=== PATIENT | female | born 1955 | race Two or more races ===

== ENCOUNTER 2018-09-15 05:06 | Inpatient (IN) | payer OTHER ==
[2018-09-15] VITALS (11 sets, daily range): BP systolic 100–122; BP diastolic 57–72
[~2018-09-15] VITALS: Ht 162.6 cm; Wt 87.1 kg
--- NOTE | 2018-09-15 05:30 | NUR ---
MS/RN NOTES PT RECEIVED. DAY SURGERY. A/OX3. ORIENTED PT TO ROOM AND CALL LIGHT. ON ROOM AIR, BREATHING EVEN AND UNLABORED. IV INSERTED TO RFA #22. CONSENTS FOR RIGHT KNEE TOTAL ARTHROPLASTY SIGNED. BELONGINGS LIST COMPLETED. BED IN LOW/LOCKED POSITION WITH CALL LIGHT IN REACH. BILATERAL UPPER SIDE RAILS IN PLACE. WILL CONTINUE TO MONITOR
[2018-09-15] MEDS ORDERED: MORPHINE SULFATE/PF 10 MG/10ML (1MG/ML) AMPUL ONE (06:27)
[2018-09-15] MEDS ORDERED: FENTANYL PF 100MCG/2ML AMPUL ONE (06:28)
[2018-09-15] MEDS ORDERED: MIDAZOLAM HCL 2 MG/2ML VIAL ONE (06:28)
[2018-09-15] MEDS ORDERED: SCOPOLAMINE HBR 1 EA PATCH.TD72 TD ONE (06:28)
--- NOTE | 2018-09-15 06:30 | NUR ---
MS/RN NOTES PT SENT DOWN TO SURGERY
[2018-09-15] MEDS ORDERED: CALC-10 PO (06:36)
[2018-09-15] MEDS ORDERED: MONT10TA22 PO (06:36)
[2018-09-15] MEDS ORDERED: ASPI-1152 PO (06:36)
[2018-09-15] MEDS ORDERED: LORA10TA7 PO (06:36)
[2018-09-15] MEDS ORDERED: AMLO2.5T3 PO (06:36)
[2018-09-15] MEDS ORDERED: LOSA100T31 PO (06:36)
[2018-09-15] MEDS ORDERED: GABA-532 PO (06:36)
[2018-09-15] MEDS ORDERED: LEVO75TA7 PO (06:36)
[2018-09-15] MEDS ORDERED: BECL10.62 IH (06:36)
[2018-09-15] MEDS ORDERED: FERR325T23 PO (06:36)
[2018-09-15] MEDS ORDERED: HYDR12.55 PO (06:36)
[2018-09-15] MEDS ORDERED: METF-440 PO (06:36)
[2018-09-15] MEDS ORDERED: ANESTHESIA TRAY IN PYXIS 1 EA TRAY MC ONE (06:40)
[2018-09-15] MEDS ORDERED: BACITRACIN 50000 UNITS/VIAL ONE (06:41)
[2018-09-15] MEDS ORDERED: BUPIVACAINE MPF 0.5% W/EPI INJ 30 ML VIAL ONE (06:41)
[2018-09-15] MEDS ORDERED: LIDOCAINE HCL/PF 1% 30 ML SDV ONE (06:41)
[2018-09-15] MEDS ORDERED: BUPIVACAINE 0.75% DEXT-PF 2 ML AMPUL ONE (06:49)
[2018-09-15] MEDS ORDERED: TRANEXAMIC ACID 3,000 MG in SODIUM CHLORIDE IRRIG SOLUTION 70 ML IR ONE (07:30)
--- NOTE | 2018-09-15 07:51 | NUR ---
MS RN NOTES RECEIVED ENDORSEMENT FROM PREVIOUS SHIFT THAT PATIENT TAKEN BY OR STAFF FOR SURGERY.
[2018-09-15] MEDS ORDERED: BUPIVACAINE MPF W/EPI 0.25% 30 ML VIAL ONE (08:37)
[2018-09-15] MEDS: AMLODIPINE BESYLATE 2.5 MG TABLET PO SCH (09:00)
[2018-09-15] MEDS: HYDROCHLOROTHIAZIDE 25 MG TABLET PO SCH (09:00)
[2018-09-15] MEDS: LOSARTAN POTASSIUM 50 MG TABLET PO SCH (09:00)
[2018-09-15] MEDS ORDERED: LORATADINE 10 MG TABLET PO PRN (09:00)
[2018-09-15] MEDS ORDERED: IV D5/0.45 NACL 1,000 ML IV PRN (09:30)
[2018-09-15] MEDS ORDERED: HYDROCODONE/APAP 5/325MG 1 EACH TABLET PO PRN ×2 (09:30→10:30)
[2018-09-15] MEDS ORDERED: COLACE 250 MG CAPSULE PO PRN (09:30)
[2018-09-15] MEDS: BUDESONIDE RESPULE INH 0.25 MG/2 ML AMPUL.NEB NEB SCH ×2 (09:30→19:30)
[2018-09-15] MEDS ORDERED: DULCOLAX 10 MG/SUPP.RECT RC PRN (09:30)
[2018-09-15] MEDS ORDERED: ZOFRAN 4mg/2ML IV PRN (09:30)
[2018-09-15] MEDS ORDERED: AMBIEN 5 MG TABLET PO PRN (09:30)
[2018-09-15] MEDS ORDERED: TYLENOL 650 MG TABLET PO PRN (09:30)
[2018-09-15] MEDS ORDERED: SENOKOT 8.6 MG TABLET PO PRN (09:30)
[2018-09-15] MEDS ORDERED: diphenhydrAMINE HCL 25 MG CAPSULE PO PRN (10:00)
[2018-09-15] MEDS ORDERED: NALOXONE HCL 0.4 MG/ML AMPUL IV PRN ×2 (10:00)
[2018-09-15] MEDS ORDERED: HYDROMORPHONE INJ 2 MG/ML DISP.SYRIN IV PRN (10:00)
[2018-09-15] MEDS ORDERED: MAGNESIUM HYDROXIDE 30 ML UDC PO PRN (10:30)
[2018-09-15] MEDS ORDERED: MAG HYDROX/AL HYDROX/SIMETH 30 ML UDC PO PRN (10:30)
[2018-09-15] MEDS ORDERED: ACETAMINOPHEN 325 MG TABLET PO PRN (10:30)
[2018-09-15] MEDS ORDERED: Z GUARD REMEDY 2 OZ OINT TP PRN (10:30)
[2018-09-15] MEDS ORDERED: MORPHINE SULFATE INJ 2 MG/ML DISP.SYRIN IV PRN (10:30)
[2018-09-15] MEDS ORDERED: HYDROCODONE/APAP 10/325MG 1 EA TABLET PO PRN (10:30)
--- NOTE | 2018-09-15 11:00 | NUR ---
MERCURY WASHER NOTES PATIENT RETURNED TO UNIT AT 1015 VIA RNEY, REPORT RECEIVED FROM ZEB LOERA. PATIENT AWAKE, ALERT AND ORIENTED X 4, VERBALLY RESPONSIVE AND RESPONDS TO VERBAL AND TACTILE STIMULI. BREATHING EVEN AND UNLABORED. ON ROOM AIR. NO SOB OR ACUTE DISTRESS. PATIENT S/P RIGHT TOTAL KNEE ARTHROPLASTY WITH DR. MURPHY. PATIENT HAD SPINAL ANESTHESIA DURING SURGERY. WITH ORDER FOR PATIENT TO BE PLACED ON TELEMETRY X 24 FOR MONITORING. EL TEACHER PLACED, SR AT [address] WITH YELLOW URINE OUTPUT NOTED. WILL CONTINUE TO MONITOR. BED LOCKED AND IN LOW POSITION. BILATERAL UPPER SIDE RAILS UP AND LOCKED. CALL LIGHT WITHIN EASY REACH.
[2018-09-15] MEDS: MONTELUKAST SODIUM (10MG) 10 MG TABLET PO SCH (11:36)
[2018-09-15] MEDS: FERROUS SULFATE (325 MG) 325 MG/TAB TABLET PO SCH (11:36)
[2018-09-15] MEDS: LEVOTHYROXINE SODIUM 75 MCG TABLET PO SCH (11:36)
[2018-09-15] MEDS: METFORMIN 500 MG TABLET PO SCH ×2 (11:36→17:55)
[2018-09-15 11:59] LABS: ALBUMIN 3.3 g/dL (3.4-5.0); BILIRUBIN,TOTAL 0.3 mg/dL (0.2-1.0); CALCIUM, SERUM 9.2 mg/dL (8.5-10.1); CREATININE 0.9 mg/dL (0.6-1.3); MAGNESIUM 1.8 mg/dL (1.8-2.4); PHOSPHORUS 3.9 mg/dL (2.5-4.9); POTASSIUM 3.4 mmol/L (3.5-5.1); TOTAL PROTEIN, SERUM 6.9 g/dL (6.4-8.2)
[2018-09-15 12:23] LABS: BASOPHILS % (AUTO) 0.3 % (0.0-2.0); EOSINOPHILS % (AUTO) 0.5 % (0.0-6.0); HEMATOCRIT 40 % (33-45); LYMPHOCYTES % (AUTO) 11.7 % (20.0-44.0); MEAN CORPUSCULAR HGB CONC 33 g/dl (31.0-36.0); MEAN CORPUSCULAR VOLUME 93 fL (82-100); MONOCYTES # (AUTO) 0.3 /CMM (0.1-1.30); MONOCYTES % (AUTO) 3.2 % (2.0-12.0); NEUTROPHILS # (AUTO) 7.1 /CMM (1.8-8.9); NEUTROPHILS % (AUTO) 84.3 % (43.0-81.0); PLATELET COUNT (AUTO) 202 /CMM (150-450); RED BLOOD CELL COUNT(AUTO) 4.26 MIL/uL (4.0-5.2); WHITE BLOOD COUNT (AUTO) 8.4 K/uL (4.3-11.0)
[2018-09-15] MEDS ORDERED: INSULIN REGULAR, HUMAN 100 UNIT/ML 3 ML VIAL SQ PRN (12:30)
[2018-09-15] MEDS ORDERED: DEXTROSE 50%-WATER 50 ML DISP.SYRIN IV PRN (12:30)
[2018-09-15] MEDS: IV NS 0.9% 1,000 ML IV PRN (14:34)
[2018-09-15] MEDS: ANCEF 1 G in IV D5W 50 ML IV SCH ×2 (14:51→23:14)
[2018-09-15 16:02] LABS: APPEARANCE,URINE CLEAR (CLEAR); BILIRUBIN,URINE NEGATIVE (NEGATIVE); BLOOD, URINE SMALL Ery/uL (NEGATIVE); COLOR,URINE YELLOW (YELLOW); KETONES,URINE NEGATIVE (NEGATIVE); LEUKOCYTE ESTERASE ,URINE NEGATIVE (NEGATIVE); NITRITE, URINE NEGATIVE (NEGATIVE); PH,URINE 5.5 (5.0-8.0); PROTEIN,URINE NEGATIVE (NEGATIVE); UGLUCOSE NEGATIVE (NEGATIVE); UROBILINOGEN,URINE 0.2 EU/dL (0.2)
[2018-09-15] MEDS ORDERED: POTASSIUM CHLORIDE 10 MEQ TABLET.SA PO ONE (17:00)
[2018-09-15] MEDS: ASPIRIN 325 MG TABLET PO SCH (17:55)
[2018-09-15] MEDS: GABAPENTIN 100 MG CAPSULE PO SCH (17:55)
[2018-09-15] MEDS: BLOOD SUGAR DIAGNOSTIC 1 EACH STRIP IN SCH ×2 (17:56→23:14)
--- NOTE | 2018-09-15 18:47 | NUR ---
SQL ARCHITECT NOTES PATIENT RESTING INSIDE ROOM. AWAKE, ALERT AND ORIENTED X 4, VERBALLY RESPONSIVE AND RESPONDS TO VERBAL AND TACTILE STIMULI. BREATHING EVEN AND UNLABORED. NO SOB OR ACUTE DISTRESS NOTED AT THIS TIME. ALL NURSING NEEDS ATTENDED AND MET. PATIENT HAD CPM ON FOR 4 HOURS. INCENTIVE SPIROMETER AT BEDSIDE. BAKER CATHETER IN PLACE WITH YELLOW URINE OUTPUT NOTED. CONTINUE WITH TELEMETRY, CUT OUT MACHINE OPERATOR IN PLACE. NSR AT 70BPM. WILL ENDORSE TO INCOMING SHIFT FOR HERNANDEZ. BED LOCKED AND IN LOW POSITION. BILATERAL UPPER SIDE RAILS UP AND LOCKED. CALL LIGHT WITHIN EASY REACH
--- NOTE | 2018-09-15 19:45 | NUR ---
TELERN FULLY AWAKE, RIGHT KNEE DRESSING DRY AND INTACT. VERBALIZES STARTING TO HAVE CRAMPS ON AFFECTED LEG. ICEPACK APPLIED OVER AREA. PILLOW UNDER LEG. V/S STABLE, PLAN OF CARE AND MEDICATION REGIMEN REVIEWED WITH PATIENT, WELL UNDERSTOOD. TO CONTINUE.
--- NOTE | 2018-09-15 23:00 | NUR ---
TELERN REMAINS SR ON THE MONITOR. BS WAS 67. SNACKS PROVIDED. ATE WELL. RIGHT LEG WITH IMMOBILIZER IN PLACE. ALL NEEDS MADE.
[2018-09-15] MEDS ORDERED: CYCLOBENZAPRINE 10 MG TABLET PO PRN (23:30)
[2018-09-16 00:15] VITALS: BP 115/71
--- NOTE | 2018-09-16 00:28 | NUR ---
RT NOTE UNAWARE OF SCHEDULED TREATMENT. WILL CARRY OUT ORDERED TREATMENT SCHEDULED.
[2018-09-16] MEDS: IV NS 0.9% 1,000 ML IV PRN ×2 (03:37→05:43)
--- NOTE | 2018-09-16 03:54 | NUR ---
TELERN SLEEPING APPEARS COMFORTABLE. CLOSELY WATCHED
[2018-09-16 04:32] VITALS: BP 123/72
[2018-09-16] MEDS: ONDANSETRON HCL/PF 4 MG/2 ML VIAL IVP PRN ×2 (05:39→12:51)
[2018-09-16] MEDS: BLOOD SUGAR DIAGNOSTIC 1 EACH STRIP IN SCH ×4 (05:44→22:13)
--- NOTE | 2018-09-16 06:25 | NUR ---
DES BS 79. IVF CONTINUED. ICEPACK MAINTAINED ON RIGHT OPERATIVE SITE.
[2018-09-16] MEDS: BUDESONIDE RESPULE INH 0.25 MG/2 ML AMPUL.NEB NEB SCH ×2 (07:59→19:48)
[2018-09-16 08:00] VITALS: BP 112/68
[2018-09-16] MEDS: HYDROMORPHONE 1 MG/1 ML DISP.SYRIN SQ PRN ×2 (08:35)
[2018-09-16] MEDS: PANTOPRAZOLE 40 MG TABLET.DR PO SCH (08:35)
[2018-09-16] MEDS: AMLODIPINE BESYLATE 2.5 MG TABLET PO SCH (09:00)
[2018-09-16] MEDS: METFORMIN 500 MG TABLET PO SCH ×2 (09:00→17:00)
[2018-09-16] MEDS: HYDROCHLOROTHIAZIDE 25 MG TABLET PO SCH (09:00)
[2018-09-16] MEDS: LOSARTAN POTASSIUM 50 MG TABLET PO SCH (09:00)
[2018-09-16] MEDS: ASPIRIN 325 MG TABLET PO SCH ×2 (09:22→18:01)
[2018-09-16] MEDS: FERROUS SULFATE (325 MG) 325 MG/TAB TABLET PO SCH (09:22)
[2018-09-16] MEDS: LEVOTHYROXINE SODIUM 75 MCG TABLET PO SCH (09:22)
[2018-09-16] MEDS: MONTELUKAST SODIUM (10MG) 10 MG TABLET PO SCH (09:22)
[2018-09-16] MEDS: HYDROCODONE/APAP 10/325MG 1 EA TABLET PO PRN (09:51)
[2018-09-16] MEDS ORDERED: MORPHINE SULFATE INJ 2 MG/ML DISP.SYRIN IV PRN (11:00)
[2018-09-16] MEDS ORDERED: HYDROCODONE/APAP 5/325MG 1 EACH TABLET PO PRN (11:00)
[2018-09-16] MEDS: POLYETHYLENE GLYCOL 3350 17 GM POWD.PACK PO SCH ×2 (11:00→12:37)
[2018-09-16] MEDS: SENNOSIDES/DOCUSATE SODIUM 1 TAB TABLET PO SCH ×3 (11:00→17:00)
[2018-09-16] MEDS ORDERED: TRAMADOL HCL 50 MG TABLET PO SCH (11:00)
--- NOTE | 2018-09-16 13:46 | NUR ---
insulin held as well as glucophage due to pt. not eating.
[2018-09-16 16:00] VITALS: BP_SYST 128; BP_SYST 153; BP_DIAS 72; BP_DIAS 73
--- NOTE | 2018-09-16 17:00 | NUR ---
MED. X 1 WITH COTY.
--- NOTE | 2018-09-16 18:00 | NUR ---
PT. MEDICATED X1 WITH DILAUDID,NORCO AND ULTRAM.STATES NORCO MOST EFFECTIVE.
[2018-09-16] MEDS: GABAPENTIN 100 MG CAPSULE PO SCH (18:03)
--- NOTE | 2018-09-16 19:30 | NUR ---
MSRN FULLY AWAKE, ASSISTED BY FILM AND VIDEO GRAPHICS DESIGNER TO RESTROOM. URGE TO HAVE BM. TO CONTINUE.
[2018-09-16 20:00] VITALS: BP 147/80
--- NOTE | 2018-09-16 20:34 | NUR ---
MSRRoshni MCKAY TO SEE PATIENT.
--- NOTE | 2018-09-16 20:36 | NUR ---
INOCENCIO STATED TO BM. BAKER TO GRAVITY OUTPUT MONITORED.
[2018-09-16] MEDS ORDERED: HYDROMORPHONE 1 MG/1 ML DISP.SYRIN SQ PRN (21:00)
[2018-09-16] MEDS: TRAMADOL HCL 50 MG TABLET PO PRN (22:12)
--- NOTE | 2018-09-16 22:38 | NUR ---
INOCENCIO BS 122, REFUSED SNAKCS.
[2018-09-16 23:45] LABS: BASOPHILS % (AUTO) 0.1 % (0.0-2.0); HEMATOCRIT 33 % (33-45); HEMOGLOBIN 11.2 g/dL (11.5-14.8); LYMPHOCYTES # (AUTO) 1.8 /CMM (0.8-4.8); LYMPHOCYTES % (AUTO) 16.7 % (20.0-44.0); MEAN CORPUSCULAR HGB CONC 34 g/dl (31.0-36.0); MEAN CORPUSCULAR VOLUME 90 fL (82-100); MONOCYTES # (AUTO) 1.1 /CMM (0.1-1.30); MONOCYTES % (AUTO) 9.9 % (2.0-12.0); NEUTROPHILS # (AUTO) 8.1 /CMM (1.8-8.9); NEUTROPHILS % (AUTO) 73.3 % (43.0-81.0); PLATELET COUNT (AUTO) 222 /CMM (150-450); RED BLOOD CELL COUNT(AUTO) 3.61 MIL/uL (4.0-5.2)
[2018-09-16 23:58] LABS: CALCIUM, SERUM 8.3 mg/dL (8.5-10.1); CREATININE 0.8 mg/dL (0.6-1.3); MAGNESIUM 1.3 mg/dL (1.8-2.4); PHOSPHORUS 3.2 mg/dL (2.5-4.9); POTASSIUM 3.1 mmol/L (3.5-5.1)
--- NOTE | 2018-09-17 | NUR ---
MSRN SLEEPING EASILY AWAKENED, NO NEEDS MADE, CLOSELY WATCHED.
[2018-09-17 00:08] LABS: THYROID STIMULATING HORMONE 0.228 uIU/mL (0.358-3.74)
[2018-09-17] MEDS ORDERED: Magnesium 1GM/D5W 100ML PREMIX PIGGYBACK IV ONE (05:30)
[2018-09-17] MEDS ORDERED: POTASSIUM CHLORIDE 20 MEQ TAB.PRT.SR PO ONE (05:30)
--- NOTE | 2018-09-17 05:30 | NUR ---
MSRN ABN LABS RELAYED TO VISHNU BURDICK, ORDERS RECEIVED.
[2018-09-17] MEDS: BLOOD SUGAR DIAGNOSTIC 1 EACH STRIP IN SCH ×4 (06:47→22:26)
--- NOTE | 2018-09-17 07:00 | NUR ---
KDUR TOTAL OF 40 MEQ PO GIVEN. 2ND BAG OF MAGNESIUM INFUSING. BS WAS 126.
[2018-09-17] MEDS: BUDESONIDE RESPULE INH 0.25 MG/2 ML AMPUL.NEB NEB SCH ×2 (07:41→19:57)
[2018-09-17] MEDS: LEVOTHYROXINE SODIUM 75 MCG TABLET PO SCH (07:43)
[2018-09-17] MEDS: PANTOPRAZOLE 40 MG TABLET.DR PO SCH (07:43)
[2018-09-17 08:00] VITALS: BP 129/74
[2018-09-17] MEDS: LOSARTAN POTASSIUM 50 MG TABLET PO SCH (08:47)
[2018-09-17] MEDS: MONTELUKAST SODIUM (10MG) 10 MG TABLET PO SCH (08:47)
[2018-09-17] MEDS: ASPIRIN 325 MG TABLET PO SCH ×2 (08:48→17:59)
[2018-09-17] MEDS: FERROUS SULFATE (325 MG) 325 MG/TAB TABLET PO SCH (08:48)
[2018-09-17] MEDS: METFORMIN 500 MG TABLET PO SCH ×2 (08:48→18:00)
[2018-09-17] MEDS: SENNOSIDES/DOCUSATE SODIUM 1 TAB TABLET PO SCH ×2 (08:48→18:00)
[2018-09-17] MEDS: AMLODIPINE BESYLATE 2.5 MG TABLET PO SCH (08:49)
[2018-09-17] MEDS: POLYETHYLENE GLYCOL 3350 17 GM POWD.PACK PO SCH (08:49)
[2018-09-17] MEDS: HYDROCODONE/APAP 10/325MG 1 EA TABLET PO PRN ×2 (09:23→14:11)
--- NOTE | 2018-09-17 10:00 | NUR ---
BAKER CATH REMOVED,THEN PHYSICAL TX HERE TO GET PT. OOB.
[2018-09-17] MEDS: TRAMADOL HCL 50 MG TABLET PO PRN (12:24)
--- NOTE | 2018-09-17 13:11 | NUR ---
MEDICATED X 2 FOR PAIN WITH ULTRAM AND NORCO.
[2018-09-17] MEDS ORDERED: BISA10SU8 RC (14:21)
[2018-09-17] MEDS ORDERED: HYDR-4384 PO (14:21)
[2018-09-17 16:00] VITALS: BP 135/81
--- NOTE | 2018-09-17 16:00 | NUR ---
PT INFORMED ORTHO PRIMARY OPERATOR THAT SHE HAS PAIN RT. CALF.DUPLEX VENOUS RT. LOWER EXT. ORDERED.
--- NOTE | 2018-09-17 16:15 | NUR ---
PT. JUST UP TO COMMODE AND VOIDED.
--- NOTE | 2018-09-17 16:37 | NUR ---
DC ORDER PER DR. MERINO,CASE MGNT. CONTACTED AWAITING PLACEMENT AT [facility].
[2018-09-17] MEDS: GABAPENTIN 100 MG CAPSULE PO SCH (18:00)
[2018-09-17] MEDS: HYDROCHLOROTHIAZIDE 25 MG TABLET PO SCH (18:01)
--- NOTE | 2018-09-17 18:30 | NUR ---
DC PAPER WORK BEGUN.
--- NOTE | 2018-09-17 19:30 | NUR ---
RN NOTES RECEIVED PT. AWAKE ON BED, A/OX4, AMBULATE WITH WALKER, DRESSING ON THE RIGHT KNEE DRY AND INTACT, CALL LIGHT WITHIN REACH, [id number], CONTINUE TO MONITOR
[2018-09-17 20:00] VITALS: BP 142/77
--- NOTE | 2018-09-17 20:50 | NUR ---
rn notes complained of right knee pain- pt asked for dilaudid, dilaudid 1mg SQ given as ordered, v/s stable
--- NOTE | 2018-09-18 06:45 | NUR ---
RN NOTES AWAKE, DENIES PAIN, NO SOB, MORNING CARE RENDERED, CALL LIGHT WITHIN REACH, [id number],PT. NEEDS ATTENDED
[2018-09-18] MEDS: BUDESONIDE RESPULE INH 0.25 MG/2 ML AMPUL.NEB NEB SCH ×2 (07:14→20:07)
--- NOTE | 2018-09-18 07:47 | NUR ---
MS RN NOTE RECEIVED PT IN STABLE CONDITION. NO SIGNS OF SOB OR DISTRESS. PT ALERT ORIENTED X4. PT AWARE OF CURRENT PLAN OF CARE AND AWAITING A BED AT [facility] FOR PT. SHE CURRENTLY IS USING A BEDSIDE COMMODE WITH IV FLUIDS RUNNING APPROPRIATELY. NO SIGNS OF INFILTRATION. WILL CONT. TO MONITOR PAIN AND MANAGE ORDERED. BED IN THE LOWEST POSITION, UPPER BED RAILS UP, AND CALL LIGHT WITHIN REACH.
[2018-09-18 08:00] VITALS: BP 124/72
[2018-09-18] MEDS: PANTOPRAZOLE 40 MG TABLET.DR PO SCH (08:12)
[2018-09-18] MEDS: POLYETHYLENE GLYCOL 3350 17 GM POWD.PACK PO SCH (08:44)
[2018-09-18] MEDS: FERROUS SULFATE (325 MG) 325 MG/TAB TABLET PO SCH (08:45)
[2018-09-18] MEDS: MONTELUKAST SODIUM (10MG) 10 MG TABLET PO SCH (08:45)
[2018-09-18] MEDS: ASPIRIN 325 MG TABLET PO SCH ×2 (08:45→17:14)
[2018-09-18] MEDS: SENNOSIDES/DOCUSATE SODIUM 1 TAB TABLET PO SCH ×2 (08:45→17:14)
[2018-09-18] MEDS: METFORMIN 500 MG TABLET PO SCH ×2 (08:45→17:15)
[2018-09-18] MEDS: LEVOTHYROXINE SODIUM 75 MCG TABLET PO SCH (08:46)
[2018-09-18] MEDS: LOSARTAN POTASSIUM 50 MG TABLET PO SCH (08:46)
[2018-09-18] MEDS: AMLODIPINE BESYLATE 2.5 MG TABLET PO SCH (08:46)
[2018-09-18] MEDS: HYDROCHLOROTHIAZIDE 25 MG TABLET PO SCH (08:47)
[2018-09-18] MEDS: BLOOD SUGAR DIAGNOSTIC 1 EACH STRIP IN SCH ×4 (08:58→21:03)
[2018-09-18 16:00] VITALS: BP 147/67
[2018-09-18] MEDS: GABAPENTIN 100 MG CAPSULE PO SCH (17:15)
[2018-09-18] MEDS: HYDROCODONE/APAP 10/325MG 1 EA TABLET PO PRN ×2 (17:15→21:57)
--- NOTE | 2018-09-18 19:13 | NUR ---
MS RN NOTE PT IN STABLE CONDITION, ALERT/ORIENTED. VS STABLE NO SIGNS OF SOB OR DISTRESS. NO PAIN NOTED. AWAITING PLACEMENT AT SNF. PT VERBALIZES UNDERSTANDING OF CURRENT PLAN OF CARE. PT. STILL USING BEDSIDE COMMODE WITHOUT DIFFICULTY. BED REMAINS IN LOW POSITION, UPPER BED RAILS UP, AND CALL LIGHT WITHIN REACH. WILL ENDORSE TO NEXT SHIFT.
--- NOTE | 2018-09-18 19:30 | NUR ---
RECEIVED PATIENT IN BED WITH AWAKE. AO X 3, ABLE TO MAKE NEEDS KNOWN. NO ACUTE DISTRESS NOTED. NO SIGNS OF PAIN NOTED. NO SYMPTOMS OF HYPER/HYPOGLYCEMIA. IV SITE PATENT, INTACT; FLUSHED. SAFETY REMINDERS GIVEN. ON LOW BED WITH BILATERAL UPPER SIDE RAILS UP. CALL MILLER WITHIN EASY REACH. WILL CONTINUE TO MONITOR.
[2018-09-18 20:00] VITALS: BP 113/63
--- NOTE | 2018-09-19 06:15 | NUR ---
PATIENT ASLEEP, EASILY AROUSABLE. RESPIRATIONS EVEN. NO SIGNS OF PAIN NOTED. RIGHT KNEE DRESSING INTACT. NEEDS ATTENDED. SAFETY PRECAUTIONS AND COMFORT MEASURES IN PLACE. WILL GIVE REPORT TO DAY SHIFT FOR CONTINUITY OF CARE.
[2018-09-19] MEDS: BLOOD SUGAR DIAGNOSTIC 1 EACH STRIP IN SCH (06:40)
--- NOTE | 2018-09-19 07:45 | NUR ---
RN OPENING NOTES RECEIVED PT. PT STABLE AND RESTING IN BED. NO S/S OF RESP DISTRESS/SOB. NO C/O PAIN. PT IS S/P R KNEE ARTHROPLASTY, PERF WITH MD MURPHY. PER WET CROWN BLOCKING OPERATOR REPORT, PT AWAITING TRANSFER TO SNF, PENDING BED AVAILABILITY. NO IV ACCESS, WILL NOTIFY MD. SAFETY MEASURES IN PLACE,C ALL LIGHT WITHIN REACH. WILL CONTINUE TO MONITOR.
[2018-09-19] MEDS: BUDESONIDE RESPULE INH 0.25 MG/2 ML AMPUL.NEB NEB SCH (07:57)
[2018-09-19 08:10] VITALS: BP 110/68
[2018-09-19] MEDS: PANTOPRAZOLE 40 MG TABLET.DR PO SCH (08:31)
[2018-09-19] MEDS: ASPIRIN 325 MG TABLET PO SCH (08:32)
[2018-09-19] MEDS: FERROUS SULFATE (325 MG) 325 MG/TAB TABLET PO SCH (08:32)
[2018-09-19] MEDS: LEVOTHYROXINE SODIUM 75 MCG TABLET PO SCH (08:32)
[2018-09-19] MEDS: METFORMIN 500 MG TABLET PO SCH (08:33)
[2018-09-19] MEDS: AMLODIPINE BESYLATE 2.5 MG TABLET PO SCH (08:34)
[2018-09-19] MEDS: HYDROCHLOROTHIAZIDE 25 MG TABLET PO SCH (08:34)
[2018-09-19] MEDS: LOSARTAN POTASSIUM 50 MG TABLET PO SCH (08:34)
[2018-09-19] MEDS: MONTELUKAST SODIUM (10MG) 10 MG TABLET PO SCH (08:34)
[2018-09-19] MEDS: HYDROCODONE/APAP 10/325MG 1 EA TABLET PO PRN (08:41)
--- NOTE | 2018-09-19 08:58 | NUR ---
RN NOTES PT HAS C/O PAIN 7/10 ACHING, NON-RADIATING IN RLE. REQUESTING PAIN MEDICATION ADMINISTRATION. SKYLER REFUSED, RETURNED TO [facility], PHARMACY CONTACTED FOR DIULADID ORDER/AVAILABILITY. WILL CONTINUE TO MONITOR.
[2018-09-19 09:00] VITALS: BP 110/68
--- NOTE | 2018-09-19 09:15 | NUR ---
RN NOTES PT HAS C/O PAIN IN IN SX SITE. PAIN MANAGEMENT MEDICATION GIVEN. WILL CONTINUE TO MONITOR.
--- NOTE | 2018-09-19 16:00 | NUR ---
DISCHARGE NOTE PT DISCHARGED TO [facility]. PT STABLE, VSS, NO S/S OF RESP DISTRESS/SOB. D/C TEACHING PERFORMED, EXIT CARE PROVIDED. PT ABLE TO VERBALIZE UNDERSTANDING OF DC TEACHING AND PRESCRIPTION EDUCATION. SIGNED FORMS INCLUDING DC INSTRUCTIONS AND BELONGINGS SHEET SIGNED, COPIED AND PLACED IN CHART. PRESCRIPTION COPIED AND PLACED IN CHART. REPORT CALLED AND GIVEN TO PAM FROM [facility]. PT LEFT HOSPITAL IN AMBULANCE WITH PARAMEDICS.
== END 2018-09-19 14:50 | DRG 470 ==
LOC: DS 05:06 → MED 05:08 → TELE 12:44 → MED 09-16 10:55
PROVIDERS: ADMIT Registered Nurse
PROC: 0SRC0JZ Replacement of Right Knee Joint with Synthetic Substitute, Open Approach (ICD-10-PCS; principal; 2018-09-15 06:30)
DX: M12.561 Traumatic arthropathy, right knee (principal); E11.9 Type 2 diabetes mellitus without complications; I10 Essential (primary) hypertension; E03.9 Hypothyroidism, unspecified; I11.0 Hypertensive heart disease with heart failure; I50.9 Heart failure, unspecified; D50.9 Iron deficiency anemia, unspecified; Z79.82 Long term (current) use of aspirin; Z79.899 Other long term (current) drug therapy; E66.9 Obesity, unspecified; Z68.33 Body mass index [BMI] 33.0-33.9, adult; Z80.3 Family history of malignant neoplasm of breast; Z98.84 Bariatric surgery status; Z83.3 Family history of diabetes mellitus; Z82.49 Family history of ischemic heart disease and other diseases of the circulatory system; Z80.6 Family history of leukemia; I20.9 Angina pectoris, unspecified
CPT/HCPCS: 36415; 80048-TC; 80053-TC; 80061-TC; 81000-TC; 82962-TC; 83735-TC; 84100-TC; 84443-TC; 85025-TC; 86850-TC; 87081-TC; 88305-TC; 88311-TC; 93971-TC; 94760-TC; 97110-TC; 97116-TC; 97530-TC; 97760-TC; A4217; A6402; C1713; G0378; J0690; J1100; J1170; J1815; J1885; J2250; J2274; J2405; J2704; J3010; J3475; J3490; J7030; J7060